=== PATIENT | male | born 1940 | race Caucasian/White ===

== ENCOUNTER → 2016-12-30 | Outpatient (CLI) | payer OTHER | LOC: CIMAGING 08:28 | PROVIDERS: ATTEND Physician Assistant | DX: Z12.89 Encounter for screening for malignant neoplasm of other sites (principal); K76.9 Liver disease, unspecified | CPT/HCPCS: 76705-PO ==

== ENCOUNTER → 2018-07-30 | Day surgery (SDC) | payer OTHER ==
[~2018-07-30] MED LIST: ALTEPLASE 2 MG VIAL IVP PRN; DEXAMETHASONE 10 MG/ML VIAL IVP ONE; DOXORUBICIN MISC ONE; FLUMAZENIL 0.5 MG/5 ML MDV IVP PRN; GLUCAGON HCL 1 MG VIAL IVP PRN; HEPARIN 10,000 UNIT/10 ML MDV (1,000 UNIT/ML) IVP PRN; MEPERIDINE 25 MG/ML SYR IVP PRN; MICRON MICROSPH MISC ONE; MIDAZOLAM 2 MG/2 ML VIAL IVP PRN; NALOXONE HCL 0.4 MG/ML INJ IVP PRN; NS 1,000 ML IV SCH; ONDANSETRON 4 MG/2 ML VIAL IVP ONE; PROTAMINE SULFATE 50 MG/5 ML VIAL IVP PRN; SCOPOLAMINE HYDROBROMIDE 1 MG/3 DAYS PATCH TD ONE; fentaNYL 100 MCG/2 ML INJ IVP PRN
--- NOTE | 2018-07-30 08:51 | PDRADPRE ---
Radiology History & Physical Indication for procedure: cancer Home medications: ASPIRIN 06/24/16 [Last Taken 07/30/18 07:00] Flomax 06/24/16 [Last Taken 07/30/18 07:00] GLIPIZIDE 06/24/16 [Last Taken 07/30/18 07:00] Lasix 40 mg 06/24/16 [Last Taken 07/30/18 07:00] Lisinopril 5 mg 06/24/16 [Last Taken 07/29/18 08:00] NADOLOL 20 mg 06/24/16 [Last Taken 07/30/18 07:00] Spironolactone 50 mg 06/24/16 [Last Taken 07/30/18 07:00] Allergies/Adverse Reactions: No Known Allergies Allergy (Unverified 03/11/10 08:18) Mental status: A&Ox3 Heart exam: regular rate and rhythm
--- NOTE | 2018-07-30 08:51 | PDPROPOC ---
Sedation Plan of Care ASA Classification: ASA 2 Mallampati Score: Class 2 Mallampati Reference Image:
[2018-07-30 22:08] LABS: CREATINE KINASE 36 IU/L (0-224)
== END | disposition home or self-care (01) ==
LOC: FIMAGING 08:03
PROVIDERS: ATTEND Radiology Diagnostic Radiology
DX: K74.69 Other cirrhosis of liver (principal); K76.6 Portal hypertension; Z53.09 Procedure and treatment not carried out because of other contraindication
CPT/HCPCS: J1956; J9000

== ENCOUNTER → 2018-08-10 | Day surgery (SDC) | payer OTHER ==
[~2018-08-10] MED LIST changes: +FLUMAZENIL 0.5 MG/5 ML MDV IVP ONE; +IOPAMIDOL (ISOVUE-300) 100 ML BTL ONE; +MIDAZOLAM 2 MG/2 ML VIAL ONE; +NALOXONE HCL 0.4 MG/ML INJ ONE; +ONDANSETRON 4 MG/2 ML VIAL IVP PRN; +OXYCODONE/APAP 5/325 TAB ONE; +OXYCODONE/APAP 5/325 TAB PO PRN; +fentaNYL 100 MCG/2 ML INJ ONE; +oxyCODONE IR 5 MG TAB PO PRN
[2018-08-10 11:26] LABS: INR 1.25 (0.83-1.16); PROTIME(PATIENT) 15.9 SEC (12.0-15.0)
--- NOTE | 2018-08-10 12:40 | PDPROPOC ---
Sedation Plan of Care ASA Classification: ASA 2 Mallampati Score: Class 2 Mallampati Reference Image:
[2018-08-10 15:03] VITALS: BP 121/64
--- NOTE | 2018-08-10 15:03 | PDRADPN ---
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 Used 50 mg doxorubicin eluted on 100 um beads to selectively embolize segment 4a and then entirety of segment 4 Inf/Abcess present in the surg proc area at time of surgery?: No
== END | disposition home or self-care (01) ==
LOC: FIMAGING 10:00
PROVIDERS: ATTEND Radiology Diagnostic Radiology
PROC: 04L33ZZ Occlusion of Hepatic Artery, Percutaneous Approach (ICD-10-PCS; principal; 2018-08-10)
DX: C22.0 Liver cell carcinoma (principal)
CPT/HCPCS: 37242; 75726; 99152; 99153; C1769; C1894; C1760; J1100; J1644; J1956; J2250; J2310; J3010; J9000; Q9967

== ENCOUNTER → 2018-10-08 | Outpatient (CLI) | payer OTHER ==
[~2018-10-08] MED LIST changes: -ALTEPLASE 2 MG VIAL IVP PRN; -DEXAMETHASONE 10 MG/ML VIAL IVP ONE; -DOXORUBICIN MISC ONE; -FLUMAZENIL 0.5 MG/5 ML MDV IVP ONE; -FLUMAZENIL 0.5 MG/5 ML MDV IVP PRN; +GADOBUTROL 10 ML VIAL IVP ONE; -GLUCAGON HCL 1 MG VIAL IVP PRN; -HEPARIN 10,000 UNIT/10 ML MDV (1,000 UNIT/ML) IVP PRN; -IOPAMIDOL (ISOVUE-300) 100 ML BTL ONE; -MEPERIDINE 25 MG/ML SYR IVP PRN; -MICRON MICROSPH MISC ONE; -MIDAZOLAM 2 MG/2 ML VIAL IVP PRN; -MIDAZOLAM 2 MG/2 ML VIAL ONE; -NALOXONE HCL 0.4 MG/ML INJ IVP PRN; -NALOXONE HCL 0.4 MG/ML INJ ONE; -NS 1,000 ML IV SCH; -ONDANSETRON 4 MG/2 ML VIAL IVP ONE; -ONDANSETRON 4 MG/2 ML VIAL IVP PRN; -OXYCODONE/APAP 5/325 TAB ONE; -OXYCODONE/APAP 5/325 TAB PO PRN; -PROTAMINE SULFATE 50 MG/5 ML VIAL IVP PRN; -SCOPOLAMINE HYDROBROMIDE 1 MG/3 DAYS PATCH TD ONE; -fentaNYL 100 MCG/2 ML INJ IVP PRN; -fentaNYL 100 MCG/2 ML INJ ONE; -oxyCODONE IR 5 MG TAB PO PRN
== END ==
LOC: FIMAGING 12:20
PROVIDERS: ATTEND Internal Medicine Hematology & Oncology
DX: R93.89 Abnormal findings on diagnostic imaging of other specified body structures (principal); Z85.05 Personal history of malignant neoplasm of liver
CPT/HCPCS: 74183; A9585

== ENCOUNTER 2018-10-29 07:09 | Day surgery (SDC) | payer OTHER ==
[2018-10-29] MEDS ORDERED: ONDANSETRON 4 MG/2 ML VIAL IVP ONE (07:19)
[2018-10-29] MEDS ORDERED: fentaNYL 100 MCG/2 ML INJ IVP PRN (07:19)
[2018-10-29] MEDS ORDERED: MIDAZOLAM 2 MG/2 ML VIAL IVP PRN (07:19)
[2018-10-29] MEDS ORDERED: FLUMAZENIL 0.5 MG/5 ML MDV IVP PRN (07:19)
[2018-10-29] MEDS ORDERED: NALOXONE HCL 0.4 MG/ML INJ IVP PRN (07:19)
[2018-10-29] MEDS ORDERED: DEXAMETHASONE 10 MG/ML VIAL IVP ONE (07:19)
[2018-10-29] MEDS ORDERED: SCOPOLAMINE HYDROBROMIDE 1 MG/3 DAYS PATCH TD ONE (07:19)
[2018-10-29] MEDS ORDERED: MEPERIDINE 25 MG/ML SYR IVP PRN (07:19)
[2018-10-29] MEDS ORDERED: NS 1,000 ML IV SCH (07:30)
[2018-10-29 08:15] LABS: PLATELET COUNT 67 10^3/uL (150-400)
[2018-10-29 08:46] LABS: INR 1.17 (0.83-1.16); PROTIME(PATIENT) 15.1 SEC (12.0-15.0)
[2018-10-29] MEDS ORDERED: MICRON MICROSPH MISC ONE (09:00)
[2018-10-29] MEDS ORDERED: DOXORUBICIN MISC ONE (09:00)
--- NOTE | 2018-10-29 09:08 | PDRADPRE ---
Radiology History & Physical Indication for procedure: cancer Home medications: ASPIRIN 81 mg PO DAILY 06/24/16 [Last Taken 10/26/18] Flomax 0.4 mg PO DAILY 06/24/16 [Last Taken 10/29/18] GLIPIZIDE 10 mg PO DAILY 06/24/16 [Last Taken 10/28/18] Lasix 40 mg PO DAILY 06/24/16 [Last Taken 10/29/18] Lisinopril 5 mg PO DAILY 06/24/16 [Last Taken 10/29/18] NADOLOL 20 mg PO DAILY 06/24/16 [Last Taken 10/29/18] Spironolactone 50 mg PO DAILY 06/24/16 [Last Taken 10/29/18] Allergies/Adverse Reactions: No Known Allergies Allergy (Verified 08/14/18 04:07) Mental status: A&Ox3
--- NOTE | 2018-10-29 09:08 | PDPROPOC ---
Sedation Plan of Care ASA Classification: ASA 2 Mallampati Score: Class 2 Mallampati Reference Image:
[2018-10-29] MEDS ORDERED: IOPAMIDOL (ISOVUE-300) 100 ML BTL ONE (11:04)
[2018-10-29 11:31] VITALS: BP 126/61
[2018-10-29] MEDS ORDERED: LIDOCAINE 1% 300 MG/30 ML SDV ONE (11:31)
[2018-10-29] MEDS ORDERED: ONDANSETRON 4 MG/2 ML VIAL IVP PRN (11:34)
--- NOTE | 2018-10-29 11:38 | PDRADPN ---
Radiology Procedure Note Date of Procedure: 10/29/18 Radiologist: Jelani Vaughn Anesthesia: IV Sedation Pre-op Diagnosis: HCC Post-op Diagnosis: Same Procedure: DebTACE Finding(s): Predominant supply from segment 8, this was treated with doxorubicin beads Inf/Abcess present in the surg proc area at time of surgery?: No
[2018-10-29] MEDS: OXYCODONE/APAP 5/325 TAB PO PRN ×2 (12:10→12:35)
[2018-10-29] MEDS ORDERED: D50W 25 GM/50 ML SYR IVP PRN (14:24)
[2018-10-29] MEDS ORDERED: INSULIN LISPRO 100 UNIT/ML SC SCH (14:30)
== END 2018-10-29 15:58 | disposition home or self-care (01) ==
LOC: FIMAGING 07:09
PROVIDERS: ATTEND Internal Medicine Hematology & Oncology
DX: C22.0 Liver cell carcinoma (principal)
CPT/HCPCS: 37243; 75726; 99152; 99153; C1769; C1894; C1760; J1100; J1644; J1815; J1956; J2250; J2310; J2405; J3010; J9000; Q9967

== ENCOUNTER → 2019-03-22 | Outpatient (CLI) | payer OTHER | LOC: BRMIMAGING 09:03 ==